=== PATIENT | female | born 1985 | race Caucasian/White ===

== ENCOUNTER 2022-10-05 13:39 | Emergency (ER) | payer MEDICAID ==
[~2022-10-05] VITALS: Ht 162.6 cm; Wt 85.7 kg
[2022-10-05 13:47] VITALS: BP 125/57
[2022-10-05] MEDS ORDERED: TRAZ-343 PO (14:42)
--- NOTE | 2022-10-05 15:07 | NUR ---
Patient discharged with v/s stable. Written and verbal after care instructions given and explained. Patient alert, oriented and verbalized understanding of instructions. Ambulatory with steady gait. All questions addressed prior to discharge. ID band removed. Patient advised to follow up with PMD. Rx of TRAZODOLE given. Opportunity to ask questions provided and answered.
--- NOTE | 2022-10-05 15:37 | NUR ---
The patient's care was reviewed and supervised by NINA LOU RN.
== END 2022-10-05 15:01 | disposition home or self-care (01) ==
LOC: MED 13:39
DX: M79.651 Pain in right thigh (principal); R03.0 Elevated blood-pressure reading, without diagnosis of hypertension; F41.9 Anxiety disorder, unspecified; G47.00 Insomnia, unspecified; Z76.0 Encounter for issue of repeat prescription
CPT/HCPCS: 99284